=== PATIENT | female | born 1980 | race Caucasian/White ===

== ENCOUNTER 2017-08-28 09:29 | Emergency (ER) | payer BC ==
--- NOTE | 2017-08-28 09:54 | UC ---
Skin Complaint HPI - HPI Summary HPI Summary: 36 year old with skin complaint. c/o a red, raised, fluid filled blistery rash on her R side of abdomen for the past 2-3 days. Pt states rash is painful, sometimes itchy. No recent illness, denies ever having this type of rash in the past. [ End ] - History of Current Complaint Time Seen by Provider: 08/28/17 09:47 Stated Complaint: SKIN COMPLAINT ([place]) Hx Obtained From: Family/Vest Front Presser Hx Last Menstrual Period: 03/08/15 Onset/Duration: Sudden Onset Aggravating Factor(s): Nothing Alleviating Factor(s): Nothing Associated Signs & Symptoms: Positive: Negative - Allergy/Home Medications Allergies/Adverse Reactions: Allergies Allergy/AdvReac Type Severity Reaction Status Date / Time No Known Allergies Allergy Verified 04/24/15 09:01 Review of Systems Skin: Rash Is Patient Immunocompromised?: No All Other Systems Reviewed And Are Negative: Yes PMH/Surg Hx/FS Hx/Imm Hx Previously Healthy: Yes - Surgical History Surgical History: None - Family History Known Family History: Positive: None - Social History Occupation: Employed Full-time Lives: With Family Alcohol Use: None Substance Use Type: None Smoking Status (MU): Never Smoked Tobacco Physical Exam Triage Information Reviewed: Yes Appearance: Well-Appearing, No Pain Distress, Well-Nourished Vital Signs Reviewed: Yes Eye Exam: Normal ENT Exam: Normal Neck: Positive: 1 Respiratory Exam: Normal Cardiovascular Exam: Normal Musculoskeletal Exam: Normal Neurological Exam: Normal Psychological Exam: Normal Skin Exam: Normal Course/Dx - Course Course Of Treatment: start meds. f/u PCP - Differential Diagnoses - Skin Complaint Differential Diagnoses: Varicella Zoster - Diagnoses Provider Diagnoses: 1-Shingles. 2- elevated blood pressure with no previous history, due to setting / condition Discharge - Sign-Out/Discharge Documenting (check all that apply): Discharge - Discharge Plan Condition: Good Disposition: HOME Prescriptions: Lidocaine PATCH 5%* [Lidoderm 5% Patch*] 1 patch TRANSDERM DAILY 30 Days #30 patch ValACYclovir (*) [Valtrex 1 GM(*)] 1 gm PO TID 7 Days #21 tab Patient Education Materials: Shingles (ED) Referrals: Joycelyn Ramirez NP [Primary Care Provider] - 4 Days (recheck blood pressure with PCP ) - Billing Disposition and Condition Condition: GOOD Disposition: HOME Images Front/Back of Body, Lg (Stokes): 1 - red vesiculopapular rash lateral flank right side approx T10. does not cross midline. 3x2 in
[2017-08-28 10:04] VITALS: BP 158/100
== END 2017-08-28 10:26 | disposition home or self-care (01) ==
LOC: UCCORT 09:29
DX: B02.9 Zoster without complications (principal); R03.0 Elevated blood-pressure reading, without diagnosis of hypertension
CPT/HCPCS: 99212; G0463

== ENCOUNTER 2017-10-26 12:46 | Emergency (ER) | payer BC ==
[2017-10-26] MEDS ORDERED: Ibuprofen ADULT LIQ* 600 MG/30 ML UDC PO ONE (13:47)
[2017-10-26] MEDS ORDERED: Dexamethasone IV* 4 MG/ML 1 ML (4 MG) IM ONE (13:49)
--- NOTE | 2017-10-26 13:50 | UC ---
UC General HPI - HPI Summary HPI Summary: INCREASING SORE THROAT, FEVER AND BODY ACHES SINCE YESTERDAY - History of Current Complaint Stated Complaint: SORE THROAT Time Seen by Provider: 10/26/17 13:33 Hx Obtained From: Patient Hx Last Menstrual Period: 03/08/15 Onset/Duration: Gradual Onset Timing: Constant Aggravating: SWALLOWING Alleviating: NOTHING Associated Signs & Symptoms: Positive: Fever, Nausea - Allergy/Home Medications Allergies/Adverse Reactions: Allergies Allergy/AdvReac Type Severity Reaction Status Date / Time No Known Allergies Allergy Verified 10/26/17 13:31 Home Medications: Home Medications Levonorgestrel (Iud) [Mirena IUD] 20 mcg IU ONCE 10/26/17 [History Confirmed ] Omeprazole CAP* [Prilosec CAP* 20 MG] 20 mg PO DAILY 10/26/17 [History Confirmed 10/26/17] PMH/Surg Hx/FS Hx/Imm Hx GI/ History: Gastroesophageal Reflux - Surgical History Surgical History: None - Family History Known Family History: Positive: None - Social History Occupation: Employed Full-time Lives: With Family Alcohol Use: None Substance Use Type: None Smoking Status (MU): Never Smoked Tobacco - Immunization History Vaccination Up to Date: Yes Review of Systems Constitutional: Fever, Chills, Fatigue ENT: Sore Throat Gastrointestinal: Diarrhea, Nausea Musculoskeletal: Myalgia Neurological: Headache Is Patient Immunocompromised?: No All Other Systems Reviewed And Are Negative: Yes Physical Exam Triage Information Reviewed: Yes Appearance: Ill-Appearing - BUT NON TOXIC Vital Signs Reviewed: Yes Eyes: Positive: Conjunctiva Clear ENT: Positive: Pharyngeal erythema, TMs normal, Tonsillar swelling, Tonsillar exudate, Uvula midline. Negative: Nasal congestion, Nasal drainage, Trismus, Muffled voice, Hoarse voice Neck: Positive: Supple, Tenderness @ - PERITONSILAR NODES, Enlarged Nodes @ - PERITONSILAR Respiratory: Positive: Lungs clear, Normal breath sounds Cardiovascular: Positive: No Murmur, Brisk Capillary Refill, Tachycardia Abdomen Description: Positive: Nontender, No Organomegaly, Soft Bowel Sounds: Positive: Present Musculoskeletal: Positive: ROM Intact Neurological: Positive: Alert Psychological: Positive: Age Appropriate Behavior Skin Exam: Normal Diagnostics - Laboratory Diagnostic Studies Completed/Ordered: RAPID STREP=POSITIVE Course/Dx - Course Course Of Treatment: NO CONCERN FOR PERITONSILAR ABSCESS. GIVEN SWELLING OF TONSILS, PT GIVEN SINGLE PO DECADRON HERE. + STREP THROAT THUS WILL TX WITH AN ANTIBIOTIC. VS IMPROVING POST TX. PT NOTES FEELING A LITTLE BETTER. PT HAS A SURGERY IN 9 DAYS THUS WILL TX WITH ZITROMAX WHICH IS A 5 DAY COURSE RATHER THAN 10 DAYS. BP REMAINS ELEVATED. PT HAS KNOWN HX MILDLY ELEVATED BP. SHE HAS OPTED TO TX WITH WEIGHT LOSS AND DIET RATHER THAN MEDICATION AND IS BEING FOLLOWED BY HER PCP FOR THIS. - Differential Dx - Multi-Symptom Provider Diagnoses: STREP THROAT Discharge - Sign-Out/Discharge Documenting (check all that apply): Discharge/Admit/Transfer - Discharge Plan Condition: Stable Disposition: HOME Prescriptions: Azithromycin 500 mg PO DAILY 5 Days #10 tablet Patient Education Materials: Strep Throat (ED) Referrals: Joycelyn Ramirez NP [Primary Care Provider] - 7 Days - Billing Disposition and Condition Condition: STABLE Disposition: HOME
[2017-10-26 14:16] VITALS: BP 140/100
== END 2017-10-26 14:35 | disposition home or self-care (01) ==
LOC: UCCORT 12:46
DX: J02.0 Streptococcal pharyngitis (principal); K21.9 Gastro-esophageal reflux disease without esophagitis
CPT/HCPCS: 87651; 99212; A9270-GY; G0463; J1100

== ENCOUNTER 2019-03-10 15:52 | Emergency (ER) | payer BC ==
[2019-03-10 16:04] VITALS: BP 150/100
--- NOTE | 2019-04-08 12:03 | UC ---
Throat Pain/Nasal Jakob HPI - HPI Summary HPI Summary: Sore throat and intermittent fever for 2 days - History of Current Complaint Chief Complaint: UCGeneralIllness Stated Complaint: COUGH, SORE THROAT Time Seen by Provider: 03/10/19 15:55 Hx Obtained From: Patient Hx Last Menstrual Period: 03/08/15 ?: No Onset/Duration: Gradual Onset Severity: Mild Pain Intensity: 6 Pain Scale Used: 0-10 Numeric Cough: Nonproductive Associated Signs & Symptoms: Positive: Fever - Allergies/Home Medications Allergies/Adverse Reactions: Allergies Allergy/AdvReac Type Severity Reaction Status Date / Time No Known Allergies Allergy Verified 03/10/19 16:04 PMH/Surg Hx/FS Hx/Imm Hx Previously Healthy: Yes Endocrine History: Diabetes GI/ History: Gastroesophageal Reflux - Surgical History Surgical History: None - Family History Known Family History: Positive: None, Non-Contributory - Social History Alcohol Use: Weekly Substance Use Type: None Smoking Status (MU): Never Smoked Tobacco Length of Time of Smoking/Using Tobacco: <1 PPD x 15 Years When Did the Patient Quit Smoking/Using Tobacco: 2014 - Immunization History Vaccination Up to Date: Yes Review of Systems All Other Systems Reviewed And Are Negative: Yes Constitutional: Positive: Fever - Intermittent fever ENT: Positive: Sore Throat Respiratory: Positive: Cough - Non-productive cough, intermittent Is Patient Immunocompromised?: No Physical Exam Triage Information Reviewed: Yes Appearance: Well-Appearing, No Pain Distress, Well-Nourished Vital Signs: Initial Vital Signs Temp 98.6 F 03/10/19 16:01 Pulse 103 03/10/19 16:01 Resp 16 03/10/19 16:01 BP 150/100 03/10/19 16:01 Pulse Ox 99 03/10/19 16:01 Vital Signs Reviewed: Yes Eyes: Positive: Conjunctiva Clear ENT: Positive: Pharyngeal erythema - Minimal tonsillar erythema, Nasal congestion, TMs normal, Uvula midline Neck: Positive: Supple, Nontender, No Lymphadenopathy Respiratory: Positive: Lungs clear, Normal breath sounds, No respiratory distress, No accessory muscle use Cardiovascular: Positive: RRR, No Murmur, Pulses Normal, Brisk Capillary Refill Abdomen Description: Positive: Nontender, No Organomegaly, Soft. Negative: CVA Tenderness (R), CVA Tenderness (L), Hepatomegaly, Splenomegaly Bowel Sounds: Positive: Present Musculoskeletal Exam: Normal Neurological Exam: Normal Psychological Exam: Normal Skin Exam: Normal Throat Pain/Nasal Course/Dx - Course Course Of Treatment: Rapid strep negative - Differential Dx/Diagnosis Provider Diagnosis: Pharyngitis Discharge ED - Sign-Out/Discharge Documenting (check all that apply): Patient Departure All imaging exams completed and their final reports reviewed: No Studies - Discharge Plan Condition: Good Disposition: HOME Patient Education Materials: Pharyngitis (ED) Referrals: Joycelyn Ramirez NP [Primary Care Provider] - Additional Instructions: Increase fluids, rest, Tylenol every 4 hours may be alternated with ibuprofen every 8 hours for fever or pain. Definite follow-up with your primary care provider if no improvement by Wednesday. If you have worsening headache with vomiting or change in mental status your to go to the emergency room for further treatment. - Billing Disposition and Condition Condition: GOOD Disposition: Home
== END 2019-03-10 16:31 | disposition home or self-care (01) ==
LOC: UCCORT 15:52
DX: J02.9 Acute pharyngitis, unspecified (principal); R50.9 Fever, unspecified; R05 Cough; E11.9 Type 2 diabetes mellitus without complications; Z87.891 Personal history of nicotine dependence
CPT/HCPCS: 87651; 99211; G0463